=== PATIENT | male | born 1990 | race Caucasian/White ===

== ENCOUNTER → 2019-12-22 | Outpatient (CLI) | payer OTHER ==
--- NOTE | 2019-12-22 10:54 | XR ---
EXAMINATION TYPE: XR chest 2V DATE OF EXAM: 12/22/2019 COMPARISON: None HISTORY: 29-year-old male with wheezing TECHNIQUE: Frontal and lateral views FINDINGS: The cardiomediastinal silhouette, aorta, and pulmonary vasculature are within normal limits. Some str anahy atelectasis in the lower lungs. No consolidation or pleural effusion. Mild hyperinflation. IMPRESSION: Mild hyperinflation may relate to depth of inspiration or asthma. Some strandy basilar atelectasis. O therwise, no acute process seen.
== END | disposition home or self-care (01) ==
LOC: RADXRYALE 09:32
PROVIDERS: ATTEND Physician Assistant Medical
DX: J98.11 Atelectasis (principal)
CPT/HCPCS: 71046